=== PATIENT | male | born 1985 | race African-American/Black ===

== ENCOUNTER 2023-07-25 15:58 | Inpatient (IN) | payer OTHER ==
[~2023-07-25] VITALS: Ht 193 cm; Wt 115.7 kg
[2023-07-25] MEDS: IOHEXOL 350 MG/ML 100ML IJ ONE (22:00)
[2023-07-25] MEDS: KETOROLAC TROMETH 30 MG/ML 1ML VIAL IV ONE (22:04)
[2023-07-25 23:40] LABS: Basophils # (auto) 0 10 ^3/uL (0-0.2); Basophils % (auto) 0.3 % (0.0-2.0); Eosinophils # (auto) 0.1 10 ^3/uL (0-0.8); Eosinophils % (auto) 0.6 % (0.0-7.0); Hematocrit 53.1 % (41.0-53.0); Hemoglobin 17.4 g/dL (13.5-17.5); Lymphocytes % (auto) 33.7 % (10.0-50.0); Mean Corpuscular Hemoglobin 29.7 pg (28.0-32.0); Mean Corpuscular Hgb Conc. 32.8 g/dL (32.0-36.0); Mean Corpuscular Volume 90.7 fL (80.0-100.0); Monocytes # (auto) 0.9 10 ^3/uL (0-1.3); Monocytes % (auto) 10.6 % (0.0-12.0); Neutrophils # (auto) 4.9 10 ^3/uL (1.6-8.6); Neutrophils % (auto) 54.8 % (37.0-80.0); Nucleated Red Blood Cells % 0.1 %; Red Blood Cells 5.86 10^6/uL (4.5-5.90); Red Cell Distribution Width 15.7 % (11.8-14.3); White Blood Cell 8.9 10^3/uL (4.4-10.8)
[2023-07-25 23:54] LABS: INR 1.07 (0.9-1.15); Prothrombin Time 11.2 sec (9.3-11.8)
[2023-07-25] MEDS: HYDROcodone-ACET 10/325MG TAB PO ONE (23:58)
[2023-07-25] MEDS: ENOXAPARIN SOD 120 MG/0.8 ML SYRINGE SC ONE (23:58)
[2023-07-26 00:05] LABS: Chloride 102 mmol/L (98-107); Potassium 4.3 mmol/L (3.5-5.1); Sodium 136 mmol/L (136-145)
[2023-07-26 00:06] LABS: Anion Gap 10 (5-15); Calcium 9.9 mg/dL (8.7-10.4); Carbon Dioxide 24 mmol/L (20-30)
[2023-07-26 00:11] LABS: BUN/Creatinine Ratio 5.8 (10.0-20.0); Blood Urea Nitrogen 5 mg/dL (9-23); Glucose 90 mg/dL (74-106)
[2023-07-26 00:39] VITALS: PULSE 65; RESP 16; O2SAT 96
[2023-07-26 05:25] VITALS: BP 118/76; PULSE 62; RESP 16; TEMP 97.9; O2SAT 97
[2023-07-26 08:34] VITALS: BP 121/83; PULSE 42; RESP 18; TEMP 98.4; O2SAT 100
[2023-07-26] MEDS: HYDROcodone-ACET 10/325MG TAB PO PRN (09:18)
[2023-07-26] MEDS: ENOXAPARIN SOD 100 MG/1 ML SYRINGE SC SCH (09:19)
[2023-07-26 12:34] VITALS: BP 107/72; PULSE 60; RESP 18; TEMP 98.4; O2SAT 97
[2023-07-26] MEDS: SOD CHL 0.9%/ KCL 20MEQ 1,000 ML IV SCH (15:22)
[2023-07-26 17:00] VITALS: BP 115/81; PULSE 60; RESP 18; TEMP 98.4; O2SAT 97
[2023-07-26] MEDS: APIXABAN 5 MG TAB PO SCH (21:05)
[2023-07-26 22:00] VITALS: BP 128/69; PULSE 67; RESP 17; TEMP 97.8; O2SAT 97
[2023-07-27 05:00] VITALS: BP 118/67; PULSE 59; RESP 17; TEMP 97.8; O2SAT 98
[2023-07-27 07:23] LABS: Basophils # (auto) 0 10 ^3/uL (0-0.2); Basophils % (auto) 0.5 % (0.0-2.0); Eosinophils # (auto) 0.1 10 ^3/uL (0-0.8); Eosinophils % (auto) 1.5 % (0.0-7.0); Hematocrit 48.3 % (41.0-53.0); Hemoglobin 15.8 g/dL (13.5-17.5); Lymphocytes % (auto) 49.9 % (10.0-50.0); Mean Corpuscular Hemoglobin 29.8 pg (28.0-32.0); Mean Corpuscular Hgb Conc. 32.8 g/dL (32.0-36.0); Mean Corpuscular Volume 90.7 fL (80.0-100.0); Monocytes # (auto) 0.6 10 ^3/uL (0-1.3); Monocytes % (auto) 9.6 % (0.0-12.0); Neutrophils # (auto) 2.3 10 ^3/uL (1.6-8.6); Neutrophils % (auto) 38.5 % (37.0-80.0); Nucleated Red Blood Cells % 0.3 %; Red Blood Cells 5.32 10^6/uL (4.5-5.90); Red Cell Distribution Width 15.5 % (11.8-14.3)
[2023-07-27 07:31] LABS: Alanine Aminotransferase 43 U/L (7-40); Albumin 4.2 g/dL (3.2-4.8); Alkaline Phosphatase 106 U/L (46-116); Anion Gap 8 (5-15); Aspartate Aminotransferase 33 U/L (13-40); Bilirubin, Total 0.6 mg/dL (0.2-1.0); Blood Urea Nitrogen 6 mg/dL (9-23); Calcium 9.4 mg/dL (8.5-10.1); Carbon Dioxide 25 mmol/L (20-30); Chloride 105 mmol/L (98-107); Glucose 75 mg/dL (74-106); Potassium 4.4 mmol/L (3.5-5.1); Sodium 138 mmol/L (136-145); Total Protein 6.8 g/dL (5.7-8.2)
[2023-07-27 09:00] VITALS: BP 102/60; PULSE 56; RESP 18; TEMP 97.4; O2SAT 97
[2023-07-27] MEDS: PANTOPRAZOLE 40 MG TAB PO SCH (11:07)
[2023-07-27] MEDS ORDERED: APIX5TAB PO ×2 (11:16)
[2023-07-27 13:00] VITALS: BP 111/67; PULSE 59; RESP 20; TEMP 97.8; O2SAT 96
[2023-07-27 17:00] VITALS: BP 123/72; PULSE 61; RESP 20; TEMP 98.1; O2SAT 98
[2023-07-28 11:06] LABS: Protein C Antigen 98 % (60-150)
[2023-07-28 15:06] LABS: Antithrombin III Antigen 106 % (72-124); Protein S Antigen Free 100 % (61-136); Proten S Antigen Total 93 % (60-150)
[2023-07-29 16:06] LABS: Anticardiolipin IgG Antibody <9 GPL U/mL (0-14); Anticardiolipin IgM Antibody <9 MPL U/mL (0-12)
[2023-07-29 17:06] LABS: Antithrombin III Antigen 98 % (72-124); Dilute Prothrombin Time(dPT) 47.9 sec (0.0-47.6); PTT-LA 35.4 sec (0.0-43.5); Protein S Antigen Free 95 % (61-136); Proten S Antigen Total 90 % (60-150); Thrombin Time 21.9 sec (0.0-23.0); dPT Confirm Ratio 1.16 Ratio (0.00-1.34); dRVVT 47.5 sec (0.0-47.0); dRVVT Mix 42.4 sec (0.0-40.4)
[2023-07-30 07:06] LABS: Lupus Interpretation Comment: (.)
[2023-07-30 14:06] LABS: Protein C Antigen 99 % (60-150)
== END 2023-07-27 18:59 | DRG 176 ==
LOC: EEVIPCON 15:58 → ER 15:58 → OVERFLOW 07-26 01:54 → WEST WING 07-26 05:26
PROVIDERS: ADMIT Internal Medicine; ATTEND Internal Medicine
DX: I26.99 Other pulmonary embolism without acute cor pulmonale (principal); D68.69 Other thrombophilia; F17.210 Nicotine dependence, cigarettes, uncomplicated; Z83.3 Family history of diabetes mellitus; Z86.711 Personal history of pulmonary embolism
CPT/HCPCS: 36415; 71275; 80048; 80053; 81241; 83880; 84484; 85025; 85301; 85302; 85305; 85306; 85384; 85610; 85613; 85670; 85705; 85732; 86147; 87081; 93005; 93970; 96372; 96374; G0378; J1885